=== PATIENT | male | born 1945 | race Asian ===

== ENCOUNTER 2022-10-27 19:03 | Emergency (ER) | payer MEDICARE ==
[~2022-10-27] VITALS: Ht 170.2 cm; Wt 59.1 kg
[2022-10-27 19:26] LABS: BASOPHILS # (AUTO) 0.1 X10'3 (0-0.2); BASOPHILS % (AUTO) 0.5 % (0-1); EOSINOPHILS # (AUTO) 0.2 X10'3 (0-0.9); EOSINOPHILS % (AUTO) 1.5 % (0-6); HEMATOCRIT 45.9 % (42.0-52.0); HEMOGLOBIN 15.6 g/dl (14.0-17.9); LYMPHOCYTES # (AUTO) 2.3 X10'3 (1.1-4.8); LYMPHOCYTES % (AUTO) 18.9 % (21-51); MEAN CORPUSCULAR HGB CONC 34.1 g/dL (33.0-36.5); MEAN CORPUSCULAR VOLUME 87.9 FL (78-98); MEAN PLATELET VOLUME 7.8 FL (7.4-10.4); MONOCYTES # (AUTO) 0.7 X10'3 (0-0.9); MONOCYTES % (AUTO) 5.7 % (2-12); NEUTROPHILS # (AUTO) 8.7 X10'3 (1.8-7.7); NEUTROPHILS % (AUTO) 73.4 % (42-75); PLATELET COUNT 268 X10'3 (140-440); RED BLOOD COUNT 5.22 X10'6 (4.70-6.10); RED CELL DISTRIBUTION WIDTH 16.1 % (11.5-14.5); WHITE BLOOD COUNT 11.9 X10'3 (4.5-11.0)
[2022-10-27 19:42] LABS: ALANINE AMINOTRANSFERASE 12 U/L (12-78); ALBUMIN 3.6 G/DL (3.4-5.0); ALKALINE PHOSPHATASE 96 IU/L (46-116); ANION GAP 10 (8-16); ASPARTATE AMINO TRANSFERASE 11 U/L (10-37); BILIRUBIN,TOTAL 1.1 MG/DL (0.1-1.0); BLOOD UREA NITROGEN 14 MG/DL (7-18); BUN/CREATININE RATIO 10.4 (10.0-20.0); CALCIUM 8.4 MG/DL (8.5-10.1); CHLORIDE 104 MMOL/L (99-107); CREATININE 1.35 MG/DL (0.60-1.10); GLUCOSE 210 MG/DL (70-104); POTASSIUM 3.9 MMOL/L (3.5-5.1); SODIUM 140 MMOL/L (135-145); TOTAL CARBON DIOXIDE 26.4 MMOL/L (24-32); TOTAL PROTEIN 7.1 G/DL (6.4-8.2); eGFR 51 ML/MIN
[2022-10-27 23:12] LABS: CLARITY,URINE CLOUDY (Clear); COLOR,URINE YELLOW (Yellow); GLUCOSE, URINE 100 mg/dl (Neg); KETONES,URINE 40 mg/dl (Neg); LEUKOCYTE ESTERASE ,URINE SMALL (Neg); NITRITES, URINE NEGATIVE (Neg); OCCULT BLOOD,URINE NEGATIVE (Neg); PROTEIN,URINE 100 mg/dl (Neg)
[2022-10-27 23:17] LABS: UA COLLECTION TYPE CLN CATCH MIDSTREAM
[2022-10-27 23:18] LABS: MUCUS STRANDS MANY /LPF (Neg); SQUAMOUS EPITHELIAL CELL,UR MODERATE /LPF (FEW); WBC,URINE 30-50 /HPF (0-4)
[2022-10-27 23:19] LABS: BACTERIA,URINE FEW /HPF (Neg); RBC,URINE 0-2 /HPF (0-2); TRANSITIONAL EPI CELLS,URINE FEW /HPF
[2022-10-27] MEDS ORDERED: amox tr/potassium clavulanate 875/125mg TAB PO ONE (23:20)
[2022-10-27] MEDS ORDERED: AMOX-117 PO (23:22)
[2022-10-27 23:50] VITALS: BP 144/87
== END 2022-10-28 00:07 | disposition home or self-care (01) ==
LOC: ER 19:04
DX: S00.83XA Contusion of other part of head, initial encounter (principal); E11.9 Type 2 diabetes mellitus without complications; F32.A Depression, unspecified; W19.XXXA Unspecified fall, initial encounter; Y93.89 Activity, other specified; Y92.89 Other specified places as the place of occurrence of the external cause; Y99.8 Other external cause status
CPT/HCPCS: 36415; 70450; 71045; 80053; 81001; 83880; 84484; 85025; 87088; 93005; 99285

== ENCOUNTER 2023-10-11 19:19 | Inpatient (IN) | payer MEDICARE ==
[~2023-10-11] VITALS: Ht 167.6 cm; Wt 66.5 kg
[2023-10-11] MEDS: normal saline 1000ML IV soln IVB ONE (23:35)
[2023-10-11 23:41] LABS: BASOPHILS % (AUTO) 0.3 % (0-1); EOSINOPHILS % (AUTO) 0.1 % (0-6); HEMATOCRIT 46.3 % (42.0-52.0); HEMOGLOBIN 15.9 g/dl (14.0-17.9); LYMPHOCYTES # (AUTO) 0.8 X10'3 (1.1-4.8); LYMPHOCYTES % (AUTO) 6.3 % (21-51); MEAN CORPUSCULAR HEMOGLOBIN 31.5 PG (27.0-31.0); MEAN CORPUSCULAR HGB CONC 34.4 g/dL (33.0-36.5); MEAN CORPUSCULAR VOLUME 91.7 FL (78-98); MEAN PLATELET VOLUME 9.6 FL (7.4-10.4); MONOCYTES # (AUTO) 0.6 X10'3 (0-0.9); NEUTROPHILS # (AUTO) 11.2 X10'3 (1.8-7.7); NEUTROPHILS % (AUTO) 88.3 % (42-75); PLATELET COUNT 119 X10'3 (140-440); RED BLOOD COUNT 5.05 X10'6 (4.70-6.10); RED CELL DISTRIBUTION WIDTH 14.5 % (11.5-14.5); WHITE BLOOD COUNT 12.7 X10'3 (4.5-11.0)
[2023-10-12] VITALS (21 sets, daily range): BP systolic 101–137; BP diastolic 62–93; PULSE 66–78; RESP 14–21; TEMP 97.3–98; O2SAT 69–100
[2023-10-12 00:05] LABS: ALBUMIN 3.7 G/DL (3.4-5.0); ANION GAP 11 (8-16); BLOOD UREA NITROGEN 14 MG/DL (7-18); BUN/CREATININE RATIO 11.7 (10.0-20.0); CALCIUM 8.5 MG/DL (8.5-10.1); CHLORIDE 104 MMOL/L (99-107); GLUCOSE 170 MG/DL (70-104); POTASSIUM 4.1 MMOL/L (3.5-5.1); SODIUM 140 MMOL/L (135-145); TOTAL CARBON DIOXIDE 25.5 MMOL/L (24-32); eCRCL 42 ML/MIN; eGFR 59 ML/MIN
[2023-10-12] MEDS: MESSAGE TO NURSING IV ONE ×4 (00:48→23:45)
[2023-10-12] MEDS: aspirin 325mg tablet, delayed-release (Ecotrin) PO ONE (00:55)
[2023-10-12] MEDS: heparin 10,000 units/1 ML INJ IV ONE (01:15)
[2023-10-12] MEDS: heparin 25,000 UNIT/250ml bag 250 ML IV PRN (01:17)
[2023-10-12] MEDS: normal saline 1000ml 1,000 ML IV ONE (01:26)
[2023-10-12] MEDS: nitroGLYCERIN 1gm ointment UD TP ONE (01:35)
[2023-10-12 01:36] LABS: BILIRUBIN,URINE NEGATIVE (Neg); CLARITY,URINE SLIGHTLY CLOUDY (Clear); COLOR,URINE YELLOW (Yellow); GLUCOSE, URINE 100 mg/dl (Neg); KETONES,URINE NEGATIVE (Neg); LEUKOCYTE ESTERASE ,URINE SMALL (Neg); NITRITES, URINE NEGATIVE (Neg); OCCULT BLOOD,URINE NEGATIVE (Neg); PROTEIN,URINE NEGATIVE (Neg); UROBILINOGEN,URINE 0.2 E.U/dL (0.2-1.0)
[2023-10-12 01:55] LABS: SQUAMOUS EPITHELIAL CELL,UR MODERATE /LPF (FEW); UA COLLECTION TYPE CLN CATCH MIDSTREAM
[2023-10-12 01:56] LABS: MUCUS STRANDS MODERATE /LPF (Neg)
[2023-10-12 01:56] LABS: PRO BRAIN NATRIURETIC PEPTIDE 373 PG/ML (0-450)
[2023-10-12 01:57] LABS: BACTERIA,URINE 2+ /HPF (Neg); RBC,URINE 0-2 /HPF (0-2); WBC,URINE 0-4 /HPF (0-4)
[2023-10-12 02:15] LABS: APTT 26 SECONDS (22-32); PROTHROMBIN TIME 10.9 SECONDS (9.0-12.0)
[2023-10-12] MEDS: CefTRIAXone 2gm/D5W 50ml BAG 50 ML IV ONE (02:50)
[2023-10-12] MEDS: polyvinyl alcohol ophthalmic drops 15ml bottle EACHEYE ONE (02:57)
[2023-10-12] MEDS ORDERED: mag hydrox/Alum hydrox/simeth 30ml oral suspension PO PRN (03:05)
[2023-10-12] MEDS ORDERED: magnesium 2GM in 50ml NS 50 ML IV PRN (03:05)
[2023-10-12] MEDS ORDERED: magnesium hydroxide 30ml (MOM) UD suspension PO PRN (03:05)
[2023-10-12] MEDS ORDERED: magnesium 4gm in 100ml NS 100 ML IV PRN (03:05)
[2023-10-12] MEDS ORDERED: potassium Cl 40MEQ/1/2NS 520ml 520 ML IV PRN (03:05)
[2023-10-12] MEDS ORDERED: morphine 2 MG/ML inj. syringe IV PRN (03:05)
[2023-10-12] MEDS ORDERED: ondansetron/PF 4mg/2ml inj IV PRN (03:05)
[2023-10-12] MEDS ORDERED: magnesium Cl slow-release 64mg tablet PO PRN (03:05)
[2023-10-12] MEDS ORDERED: potassium Cl 20 mEq SR tablet PO PRN ×2 (03:05)
[2023-10-12] MEDS ORDERED: acetaminophen 325mg tablet PO PRN (03:05)
[2023-10-12 03:50] LABS: HEMOGLOBIN A1C 7.9 % (4.5-6.2)
[2023-10-12 03:56] LABS: MAGNESIUM 1.9 MG/DL (1.5-2.4)
[2023-10-12] MEDS ORDERED: DEXTROSE 15 GM of carb/4 tabs (each vial/BOTTLE has 4 tablets) PO PRN ×2 (04:50)
[2023-10-12] MEDS ORDERED: dextrose 50%-water 50ml dispensing syringe IV PRN ×2 (04:50)
[2023-10-12] MEDS ORDERED: glucagon, human recombinant 1mg kit SUBCUT PRN (04:50)
[2023-10-12] MEDS: insulin Lispro (HumaLOG) vial - multi-dose SQ SCH (07:38)
[2023-10-12] MEDS: aspirin 81mg tab.chew PO SCH (07:44)
[2023-10-12] MEDS: docusate sod 100mg capsule PO SCH (07:44)
[2023-10-12] MEDS: pantoprazole 40 MG vial IV SCH (07:44)
[2023-10-12] MEDS: K and/or MAG REPLACEMENT MC SCH (08:00)
[2023-10-12] MEDS ORDERED: heparin 25,000 UNIT/250ml bag 250 ML IV PRN ×2 (09:25→14:45)
[2023-10-12] MEDS ORDERED: NO HOME MEDS (13:27)
[2023-10-12] MEDS: atorvastatin 20mg tablet PO SCH (14:00)
[2023-10-12] MEDS ORDERED: verapamil 2.5 mg/ml inj IV ONE (16:25)
[2023-10-12] MEDS ORDERED: iohexol 350MG/ML 100ml bottle IV ONE (16:25)
[2023-10-12] MEDS ORDERED: iohexol 350 MG/ML 50ML vial IV ONE (16:25)
[2023-10-12] MEDS ORDERED: heparin 1,000unit/ml 10ml vial 10 ML ONE (16:25)
[2023-10-12] MEDS ORDERED: fentaNYL/PF 50MCG/1 ML 2ML syringe ONE ×2 (16:25→17:39)
[2023-10-12] MEDS ORDERED: LIDOcaine 1% (10mg/ml) 2ml vial ONE (16:25)
[2023-10-12] MEDS ORDERED: midazolam 1 mg/ML 2ml injection ONE ×2 (16:25→17:39)
[2023-10-12] MEDS ORDERED: nitroGLYCERIN 500mcg/5mL D5W 5 ML IV ONE (16:26)
[2023-10-12] MEDS ORDERED: LIDOcaine 1% 30ml preserv. free vial ONE (17:57)
[2023-10-12] MEDS: normal saline 1000ml 1,000 ML IV SCH ×2 (21:30→23:21)
[2023-10-12] MEDS: insulin glargine (Lantus) pen - multi-dose SQ SCH (23:07)
[2023-10-12] MEDS: CefTRIAXone/D5W-Rocephin 1gm 50 ML IV SCH (23:19)
[2023-10-13] VITALS (10 sets, daily range): BP systolic 98–150; BP diastolic 68–88; PULSE 63–79; RESP 16–20; TEMP 97.3–98.4; O2SAT 94–99
[2023-10-13 01:58] LABS: BASOPHILS % (AUTO) 0.5 % (0-1); EOSINOPHILS # (AUTO) 0.1 X10'3 (0-0.9); EOSINOPHILS % (AUTO) 0.8 % (0-6); HEMATOCRIT 35.7 % (42.0-52.0); HEMOGLOBIN 12.1 g/dl (14.0-17.9); LYMPHOCYTES # (AUTO) 1.1 X10'3 (1.1-4.8); LYMPHOCYTES % (AUTO) 16.2 % (21-51); MEAN CORPUSCULAR HEMOGLOBIN 31.6 PG (27.0-31.0); MEAN CORPUSCULAR HGB CONC 33.9 g/dL (33.0-36.5); MEAN CORPUSCULAR VOLUME 93.1 FL (78-98); MEAN PLATELET VOLUME 10.2 FL (7.4-10.4); MONOCYTES # (AUTO) 0.4 X10'3 (0-0.9); MONOCYTES % (AUTO) 6.3 % (2-12); NEUTROPHILS # (AUTO) 5.3 X10'3 (1.8-7.7); NEUTROPHILS % (AUTO) 76.2 % (42-75); PLATELET COUNT 98 X10'3 (140-440); RED BLOOD COUNT 3.84 X10'6 (4.70-6.10); RED CELL DISTRIBUTION WIDTH 14.5 % (11.5-14.5); WHITE BLOOD COUNT 6.9 X10'3 (4.5-11.0)
[2023-10-13 02:10] LABS: ALANINE AMINOTRANSFERASE 25 U/L (12-78); ALBUMIN 2.6 G/DL (3.4-5.0); ALBUMIN/GLOBULIN RATIO 0.9 (1.1-1.5); ALKALINE PHOSPHATASE 43 IU/L (46-116); ANION GAP 10 (8-16); ASPARTATE AMINO TRANSFERASE 30 U/L (10-37); BILIRUBIN,TOTAL 0.5 MG/DL (0.1-1.0); BLOOD UREA NITROGEN 10 MG/DL (7-18); BUN/CREATININE RATIO 9.8 (10.0-20.0); CHLORIDE 111 MMOL/L (99-107); CHOL/HDL RATIO 3.9 (0.00-4.99); CHOLESTEROL 178 MG/DL (0-200); CREATININE 1.02 MG/DL (0.60-1.10); GLUCOSE 106 MG/DL (70-104); HDL CHOLESTEROL 46 MG/DL (35-60); LDL CHOLESTEROL 119 MG/DL (50-100); MAGNESIUM 1.6 MG/DL (1.5-2.4); POTASSIUM 3.5 MMOL/L (3.5-5.1); SODIUM 144 MMOL/L (135-145); TOTAL CARBON DIOXIDE 23.3 MMOL/L (24-32); TOTAL PROTEIN 5.4 G/DL (6.4-8.2); TRIGLYCERIDES 88 MG/DL (20-135); eCRCL 49 ML/MIN; eGFR 71 ML/MIN
[2023-10-13 06:46] LABS: ISTAT HGB ART 11.2 g/dl (14.0-17.9); ISTAT HGB MIX 11.2 g/dl (14.0-17.9); ISTAT Hct ART 33 %PCV (42-52); ISTAT Hct MIX 33 %PCV (42-52); ISTAT O2 SATURATION ARTERIAL 99 % (95-98); ISTAT O2 SATURATION MIX VENOUS 60 % (60-80); ISTAT SOURCE BLNK
[2023-10-13] MEDS ORDERED: heparin 25,000 UNIT/250ml bag 250 ML IV PRN (09:59)
[2023-10-13] MEDS: heparin 10,000 units/1 ML INJ IV PRN (10:09)
[2023-10-13] MEDS: MESSAGE TO NURSING IV ONE ×2 (10:10→18:50)
[2023-10-13] MEDS: MESSAGE TO PHARMACY IJ ONE (12:05)
[2023-10-13] MEDS: MESSAGE TO NURSING PO ONE ×3 (12:05)
[2023-10-13] MEDS ORDERED: ondansetron 4mg rapidly disintigrating tab PO PRN (12:05)
[2023-10-13 15:11] LABS: ABG BASE EXCESS -2.8 mmol/L (-2.0-2.0); ABG HCO3 19.9 mmol/L (22.0-26.0); ABG OXYGEN SATURATION 96.3 % (94-97); ABG PCO2 (T) 29.2 mmHg (35.0-48.0); ABG PH (T) 7.452 (7.340-7.440); ABG PO2 (T) 81.4 mmHg (75.0-100.0); ALLEN'S TEST POSITIVE; FCOHb 0.6 % (0.0-3.9); FHHb 3.7 % (0.0-5.0); FMetHb 0.3 % (0.0-1.5); FO2Hb 95.4 % (94-97); MODE ROOM AIR; TOTAL HEMOGLOBIN 13.7 G/dl (14.0-17.9)
[2023-10-13 18:27] LABS: APTT 60 SECONDS (22-32); PROTHROMBIN TIME 10.8 SECONDS (9.0-12.0)
[2023-10-13] MEDS ORDERED: dextrose 50%-water 50ml dispensing syringe IV PRN (19:50)
[2023-10-13] MEDS: Insulin Reg/NS 100units/100mL 100 ML IV SCH (19:50)
[2023-10-13] MEDS ORDERED: insulin glargine (Lantus) pen - multi-dose SQ PRN (19:50)
[2023-10-13] MEDS: mupirocin 2% nasal ointment 1gm UD NS SCH (20:00)
[2023-10-13] MEDS: atorvastatin 20mg tablet PO SCH (20:59)
[2023-10-14] VITALS (32 sets, daily range): BP systolic 100–169; BP diastolic 52–93; PULSE 73–97; RESP 10–38; TEMP 94.2–98.7; O2SAT 60–100
[2023-10-14 01:28] LABS: PROTHROMBIN TIME 10.8 SECONDS (9.0-12.0)
[2023-10-14] MEDS: MESSAGE TO NURSING IV ONE (01:50)
[2023-10-14 04:38] LABS: ALANINE AMINOTRANSFERASE 34 U/L (12-78); ALBUMIN 3.3 G/DL (3.4-5.0); ALBUMIN/GLOBULIN RATIO 0.9 (1.1-1.5); ALKALINE PHOSPHATASE 83 IU/L (46-116); ANION GAP 7 (8-16); ASPARTATE AMINO TRANSFERASE 39 U/L (10-37); BILIRUBIN,TOTAL 0.4 MG/DL (0.1-1.0); BLOOD UREA NITROGEN 10 MG/DL (7-18); BUN/CREATININE RATIO 9.3 (10.0-20.0); CALCIUM 8.4 MG/DL (8.5-10.1); CHLORIDE 107 MMOL/L (99-107); CREATININE 1.08 MG/DL (0.60-1.10); GLUCOSE 137 MG/DL (70-104); MAGNESIUM 1.8 MG/DL (1.5-2.4); POTASSIUM 3.9 MMOL/L (3.5-5.1); PRO BRAIN NATRIURETIC PEPTIDE 860 PG/ML (0-450); SODIUM 142 MMOL/L (135-145); TOTAL CARBON DIOXIDE 27.6 MMOL/L (24-32); TOTAL PROTEIN 6.8 G/DL (6.4-8.2); eCRCL 47 ML/MIN; eGFR 66 ML/MIN
[2023-10-14 04:57] LABS: BASOPHILS # (AUTO) 0.1 X10'3 (0-0.2); MONOCYTES # (AUTO) 0.5 X10'3 (0-0.9)
[2023-10-14 04:59] LABS: BASOPHILS % (AUTO) 0.8 % (0-1); EOSINOPHILS # (AUTO) 0.2 X10'3 (0-0.9); EOSINOPHILS % (AUTO) 2.6 % (0-6); HEMATOCRIT 40.2 % (42.0-52.0); HEMOGLOBIN 14.1 g/dl (14.0-17.9); LYMPHOCYTES # (AUTO) 1.7 X10'3 (1.1-4.8); LYMPHOCYTES % (AUTO) 26.8 % (21-51); MEAN CORPUSCULAR HEMOGLOBIN 32.3 PG (27.0-31.0); MEAN CORPUSCULAR HGB CONC 35.1 g/dL (33.0-36.5); MEAN PLATELET VOLUME 11.1 FL (7.4-10.4); MONOCYTES % (AUTO) 7.8 % (2-12); PLATELET COUNT 80 X10'3 (140-440); RED BLOOD COUNT 4.37 X10'6 (4.70-6.10); RED CELL DISTRIBUTION WIDTH 14.7 % (11.5-14.5); WHITE BLOOD COUNT 6.4 X10'3 (4.5-11.0)
[2023-10-14 05:18] LABS: LARGE PLATELETS FEW; PLATELET ESTIMATE DECREASED
[2023-10-14 05:19] LABS: ANISOCYTOSIS 1+; BURR CELLS FEW; TEAR DROP CELLS FEW
[2023-10-14 05:20] LABS: ACANTHOCYTES FEW
[2023-10-14] MEDS: cefazolin 2gm/D5W 100mL 100 ML IV ONE (05:30)
[2023-10-14] MEDS ORDERED: vancomycin 1,000mg inj ONE (06:48)
[2023-10-14] MEDS ORDERED: propofol inj 20 ML IV ONE (07:34)
[2023-10-14] MEDS ORDERED: MIDAZolam 1 MG/ML 5ML VIAL ONE (07:34)
[2023-10-14] MEDS ORDERED: SUfentanil 50mcg/ml 1ml amp IV ONE (07:34)
[2023-10-14] MEDS ORDERED: rocuronium 10mg/ml inj IV ONE ×2 (07:35)
[2023-10-14] MEDS: LORazepam 2 mg/ml vial IV ONE (07:44)
[2023-10-14] MEDS: famotidine 20mg tablet PO ONE (07:44)
[2023-10-14] MEDS ORDERED: sevoflurane 250ml liquid IH ONE (07:56)
[2023-10-14 08:49] LABS: ABG BASE EXCESS -0.8 mmol/L (-2.0-2.0); ABG HCO3 21.7 mmol/L (22.0-26.0); ABG OXYGEN SATURATION 98.9 % (94-97); ABG PCO2 29.4 mmHg (35.0-48.0); ABG PH 7.485 (7.340-7.440); ABG PO2 310.4 mmHg (75.0-100.0); CL (ABG) 107 mmol/L (99-107); FCOHb 0.3 % (0.0-3.9); FHHb 1.1 % (0.0-5.0); FMetHb 0.3 % (0.0-1.5); FO2Hb 98.3 % (94-97); GLUCOSE (ABG) 157 mg/dl (70-104); IONIZED CA (ABG) 1.06 mmol/L (1.10-1.30); K (ABG) 3.6 mmol/L (3.5-5.1); TOTAL HEMOGLOBIN 12.4 G/dl (14.0-17.9)
[2023-10-14] MEDS: BUPIVACAINE liposomal/PF 13.3 MG/ML vial IM ONE (09:59)
[2023-10-14] MEDS ORDERED: potassium Cl 2 mEq/ml inj IV ONE (10:00)
[2023-10-14] MEDS: MESSAGE TO NURSING PO ONE (10:00)
[2023-10-14] MEDS: BUPIVAcaine/PF 2.5mg/ml (0.25%) 10ml vial ONE (10:00)
[2023-10-14] MEDS: ceFAZolin 1000mg inj ONE (10:01)
[2023-10-14] MEDS: epiNEPHrine 1 mg/ml inj ONE (10:02)
[2023-10-14] MEDS ORDERED: albumin (Human) 5% 250ml 250 ML IV ONE ×3 (10:07)
[2023-10-14 10:47] LABS: ABG BASE EXCESS -5.3 mmol/L (-2.0-2.0); ABG HCO3 19.8 mmol/L (22.0-26.0); ABG OXYGEN SATURATION 78.6 % (94-97); ABG PCO2 36.9 mmHg (35.0-48.0); ABG PH 7.347 (7.340-7.440); CL (ABG) 115 mmol/L (99-107); FCOHb 0.3 % (0.0-3.9); FHHb 21.3 % (0.0-5.0); FMetHb 0.3 % (0.0-1.5); FO2Hb 78.1 % (94-97); GLUCOSE (ABG) 113 mg/dl (70-104); IONIZED CA (ABG) 0.93 mmol/L (1.10-1.30); TOTAL HEMOGLOBIN 8.9 G/dl (14.0-17.9)
[2023-10-14] MEDS ORDERED: sodium bicarbonate (8.4%) inj. 1 MEQ/ML ML ONE (11:18)
[2023-10-14 11:32] LABS: ACT @ 1.70 U 336 SEC (193-297); ACT @ 2.84 U 453 SEC (260-420); BASELINE ACT 148 SEC (101-148); PATIENT WEIGHT 77.0k KG
[2023-10-14 11:39] LABS: ABG BASE EXCESS -1.3 mmol/L (-2.0-2.0); ABG HCO3 22.5 mmol/L (22.0-26.0); ABG OXYGEN SATURATION 98.8 % (94-97); ABG PCO2 34.2 mmHg (35.0-48.0); ABG PH 7.436 (7.340-7.440); ABG PO2 257.6 mmHg (75.0-100.0); CL (ABG) 113 mmol/L (99-107); FCOHb 0.3 % (0.0-3.9); FHHb 1.2 % (0.0-5.0); FMetHb 0.3 % (0.0-1.5); FO2Hb 98.2 % (94-97); GLUCOSE (ABG) 122 mg/dl (70-104); K (ABG) 5.1 mmol/L (3.5-5.1); TOTAL HEMOGLOBIN 10.7 G/dl (14.0-17.9)
[2023-10-14 12:05] LABS: ABG BASE EXCESS VENOUS -4.2 mmol/L (-2.0 - 2.0); ABG OXYGEN SATURATION VENOUS 80.9 % (75 - 99 %); ABG PH (VENOUS) 7.349 (7.310-7.450); CL (ABG) 112 mmol/L (99-107); FCOHb VENOUS 0.3 %; FMetHb VENOUS 0.3 % (0.0 - 0.5); FO2Hb VENOUS 80.4 %; GLUCOSE (ABG) 120 mg/dl (70-104); IONIZED CA (ABG) 1.09 mmol/L (1.10-1.30); K (ABG) 4.3 mmol/L (3.5-5.1); TOTAL HEMOGLOBIN 10.9 G/dl (14.0-17.9)
[2023-10-14 12:23] LABS: ABG BASE EXCESS VENOUS -1.7 mmol/L (-2.0 - 2.0); ABG OXYGEN SATURATION VENOUS 89.9 % (75 - 99 %); ABG PCO2 VENOUS 38.2 mmHg (41.0-54.0); ABG PH (VENOUS) 7.397 (7.310-7.450); ABG PO2 VENOUS 54.4 mmHg (25.0-35.0); CL (ABG) 108 mmol/L (99-107); FCOHb VENOUS 0.3 %; FMetHb VENOUS 0.3 % (0.0 - 0.5); FO2Hb VENOUS 89.4 %; GLUCOSE (ABG) 124 mg/dl (70-104); IONIZED CA (ABG) 0.94 mmol/L (1.10-1.30); K (ABG) 5.5 mmol/L (3.5-5.1); TOTAL HEMOGLOBIN 8.5 G/dl (14.0-17.9)
[2023-10-14 12:32] LABS: ABG BASE EXCESS -3.6 mmol/L (-2.0-2.0); ABG HCO3 22.6 mmol/L (22.0-26.0); ABG OXYGEN SATURATION 98.9 % (94-97); ABG PCO2 46.3 mmHg (35.0-48.0); ABG PH 7.307 (7.340-7.440); ABG PO2 495.1 mmHg (75.0-100.0); CL (ABG) 109 mmol/L (99-107); FCOHb 0.2 % (0.0-3.9); FHHb 1.1 % (0.0-5.0); FMetHb 0.3 % (0.0-1.5); FO2Hb 98.4 % (94-97); GLUCOSE (ABG) 145 mg/dl (70-104); IONIZED CA (ABG) 0.94 mmol/L (1.10-1.30); K (ABG) 5.3 mmol/L (3.5-5.1); TOTAL HEMOGLOBIN 10.2 G/dl (14.0-17.9)
[2023-10-14 13:00] LABS: ABG BASE EXCESS -0.9 mmol/L (-2.0-2.0); ABG HCO3 23.5 mmol/L (22.0-26.0); ABG OXYGEN SATURATION 98.9 % (94-97); ABG PCO2 37.7 mmHg (35.0-48.0); ABG PH 7.412 (7.340-7.440); ABG PO2 508.7 mmHg (75.0-100.0); CL (ABG) 109 mmol/L (99-107); FCOHb 0.2 % (0.0-3.9); FHHb 1.1 % (0.0-5.0); FMetHb 0.3 % (0.0-1.5); FO2Hb 98.4 % (94-97); GLUCOSE (ABG) 134 mg/dl (70-104); IONIZED CA (ABG) 0.99 mmol/L (1.10-1.30); K (ABG) 4.4 mmol/L (3.5-5.1); TOTAL HEMOGLOBIN 10.8 G/dl (14.0-17.9)
[2023-10-14 13:28] LABS: ABG HCO3 25.4 mmol/L (22.0-26.0); ABG OXYGEN SATURATION 98.5 % (94-97); ABG PCO2 35.3 mmHg (35.0-48.0); ABG PH 7.475 (7.340-7.440); ABG PO2 387.4 mmHg (75.0-100.0); CL (ABG) 109 mmol/L (99-107); FCOHb 0.1 % (0.0-3.9); FHHb 1.5 % (0.0-5.0); FMetHb 0.3 % (0.0-1.5); FO2Hb 98.1 % (94-97); GLUCOSE (ABG) 162 mg/dl (70-104); IONIZED CA (ABG) 0.97 mmol/L (1.10-1.30); K (ABG) 4.8 mmol/L (3.5-5.1); TOTAL HEMOGLOBIN 10.3 G/dl (14.0-17.9)
[2023-10-14 14:25] LABS: ACTIVATED CLOTTING TIME 143 SEC (101-148)
[2023-10-14 14:25] LABS: ABG BASE EXCESS -0.7 mmol/L (-2.0-2.0); ABG HCO3 23.1 mmol/L (22.0-26.0); ABG PCO2 34.9 mmHg (35.0-48.0); ABG PH 7.439 (7.340-7.440); CL (ABG) 109 mmol/L (99-107); FCOHb 0.3 % (0.0-3.9); FHHb 12.9 % (0.0-5.0); FMetHb 0.3 % (0.0-1.5); FO2Hb 86.5 % (94-97); GLUCOSE (ABG) 125 mg/dl (70-104); IONIZED CA (ABG) 1.17 mmol/L (1.10-1.30); K (ABG) 3.9 mmol/L (3.5-5.1); TOTAL HEMOGLOBIN 10.9 G/dl (14.0-17.9)
[2023-10-14] MEDS ORDERED: Neutra Phos packet PO PRN (15:30)
[2023-10-14] MEDS ORDERED: potassium CL 10mEq/100ml bag 100 ML IV PRN (15:30)
[2023-10-14] MEDS ORDERED: metoclopramide 5 mg/ml inj IV PRN (15:30)
[2023-10-14] MEDS: sodium chloride 0.45% 1,000 ML IV SCH (15:30)
[2023-10-14] MEDS ORDERED: sodium phosphate inj. 30 MMOL in dextrose 5%-water 250 ML IV PRN (15:30)
[2023-10-14] MEDS ORDERED: dextrose 50%-water 50ml dispensing syringe IV PRN (15:30)
[2023-10-14] MEDS ORDERED: niCARDipine-NS 40mg/200ml IVPB 200 ML IV PRN (15:30)
[2023-10-14] MEDS ORDERED: insulin glargine (Lantus) pen - multi-dose SQ PRN (15:30)
[2023-10-14] MEDS ORDERED: normal saline 250ml IV soln 250 ML IV PRN (15:30)
[2023-10-14] MEDS ORDERED: Insulin Reg/NS 100units/100mL 100 ML IV SCH (15:30)
[2023-10-14] MEDS ORDERED: ondansetron/PF 4mg/2ml inj IV PRN (15:30)
[2023-10-14] MEDS ORDERED: mineral oil 133ml enema RC PRN (15:30)
[2023-10-14 15:39] LABS: ABG BASE EXCESS -2.5 mmol/L (-2.0-2.0); ABG HCO3 21.6 mmol/L (22.0-26.0); ABG OXYGEN SATURATION 95.7 % (94-97); ABG PCO2 (T) 32.6 mmHg (35.0-48.0); ABG PH (T) 7.432 (7.340-7.440); ABG PO2 (T) 73.9 mmHg (75.0-100.0); FCOHb 0.6 % (0.0-3.9); FHHb 4.3 % (0.0-5.0); FMetHb 0.3 % (0.0-1.5); FO2Hb 94.8 % (94-97); MODE SIMV VC; PATIENT TEMPERATURE 35.5; PEEP 5 cm H2O; RESPIRATORY RATE 12 b/min; TIDAL VOLUME 400 mL; TOTAL HEMOGLOBIN 12.3 G/dl (14.0-17.9)
[2023-10-14] MEDS: ceFAZolin/D5W- 1GM premix 50 ML IV SCH (16:00)
[2023-10-14 16:24] LABS: ALANINE AMINOTRANSFERASE 25 U/L (12-78); ALBUMIN 2.6 G/DL (3.4-5.0); ALBUMIN/GLOBULIN RATIO 1.4 (1.1-1.5); ALKALINE PHOSPHATASE 34 IU/L (46-116); ANION GAP 12 (8-16); ASPARTATE AMINO TRANSFERASE 58 U/L (10-37); BILIRUBIN,TOTAL 1.2 MG/DL (0.1-1.0); BLOOD UREA NITROGEN 7 MG/DL (7-18); CALCIUM 7.7 MG/DL (8.5-10.1); CHLORIDE 115 MMOL/L (99-107); CREATININE 0.88 MG/DL (0.60-1.10); GLUCOSE 97 MG/DL (70-104); MAGNESIUM 2.4 MG/DL (1.5-2.4); PHOSPHORUS 1.7 MG/DL (2.3-4.5); SODIUM 150 MMOL/L (135-145); TOTAL CARBON DIOXIDE 23.5 MMOL/L (24-32); TOTAL PROTEIN 4.4 G/DL (6.4-8.2); eCRCL 66 ML/MIN; eGFR 84 ML/MIN
[2023-10-14 16:26] LABS: POTASSIUM 3.3 MMOL/L (3.5-5.1)
[2023-10-14 16:29] LABS: HEMATOCRIT 34.2 % (42.0-52.0); MEAN CORPUSCULAR HEMOGLOBIN 31.8 PG (27.0-31.0); MEAN CORPUSCULAR HGB CONC 35.1 g/dL (33.0-36.5); MEAN CORPUSCULAR VOLUME 90.7 FL (78-98); MEAN PLATELET VOLUME 8.8 FL (7.4-10.4); RED BLOOD COUNT 3.77 X10'6 (4.70-6.10); RED CELL DISTRIBUTION WIDTH 14.1 % (11.5-14.5)
[2023-10-14] MEDS ORDERED: calcium gluconate inj. 1 GM in normal saline 100ml IV soln 40 ML IV ONE (16:35)
[2023-10-14] MEDS ORDERED: calcium gluconate inj. 2 GM in normal saline 100ml IV soln 100 ML IV PRN (16:35)
[2023-10-14] MEDS ORDERED: DOPamine 400mg/D5W 250ml 250 ML IV PRN (16:40)
[2023-10-14] MEDS: albumin (Human) 5% 250ml 250 ML IV PRN (16:48)
[2023-10-14] MEDS: albumin (Human) 5% 250ml 250 ML IV ONE ×3 (16:48→16:58)
[2023-10-14] MEDS: CALCIUM GLUC 1gm/50ml NACL,iso 50 ML IV ONE ×2 (16:49→16:50)
[2023-10-14] MEDS: DOPamine 400mg/D5W 250ml 250 ML IV ONE (16:50)
[2023-10-14] MEDS: sodium bicarbonate (8.4%) 1 mEq/ml syringe ONE ×2 (16:51→18:41)
[2023-10-14] MEDS: nitroGLYCERIN-Tridil 50MG/D5W 250 ML IV PRN (16:53)
[2023-10-14 17:04] LABS: PLATELET COUNT 29 X10'3 (140-440)
[2023-10-14] MEDS ORDERED: ipratropium/albuterol 3ml nebule NEB ONE (17:05)
[2023-10-14 17:31] LABS: ABG BASE EXCESS -1.1 mmol/L (-2.0-2.0); ABG HCO3 20.7 mmol/L (22.0-26.0); ABG OXYGEN SATURATION 98.9 % (94-97); ABG PH (T) 7.566 (7.340-7.440); ABG PO2 (T) 253.9 mmHg (75.0-100.0); FCOHb 0.1 % (0.0-3.9); FHHb 1.1 % (0.0-5.0); FMetHb 0.3 % (0.0-1.5); FO2Hb 98.5 % (94-97); MODE SIMV VC; PATIENT TEMPERATURE 34.9; PEEP 8 cm H2O; RESPIRATORY RATE 16 b/min; TIDAL VOLUME 500 mL; TOTAL HEMOGLOBIN 9.2 G/dl (14.0-17.9)
[2023-10-14] MEDS ORDERED: ipratropium/albuterol 3ml nebule NEB SCH (17:35)
[2023-10-14] MEDS: ipratropium/albuterol 3ml nebule NEB ONE (17:43)
[2023-10-14] MEDS: sodium phosphate inj. 15 MMOL in dextrose 5%-water 250 ML IV PRN (18:03)
[2023-10-14] MEDS: potassium Cl 40MEQ/1/2NS 520ml 520 ML IV PRN (18:03)
[2023-10-14 18:04] LABS: FIBRINOGEN 153 MG/DL (177-424); INR 1.3 INR; PROTHROMBIN TIME 13.2 SECONDS (9.0-12.0)
[2023-10-14 18:09] LABS: APTT 39 SECONDS (22-32)
[2023-10-14 18:14] LABS: TOTAL CELLS COUNTED 100
[2023-10-14 18:16] LABS: PLATELET ESTIMATE DECREASED
[2023-10-14 18:17] LABS: BURR CELLS FEW; ELLIPTOCYTES FEW; LARGE PLATELETS FEW
[2023-10-14] MEDS: sodium bicarbonate (8.4%) 1 mEq/ml syringe IV ONE (18:40)
[2023-10-14 19:30] LABS: OXYGEN SATURATION (MIXED VEN) 48.1 % (60-80); PO2 MIXED VENOUS (TEMP COR) 21.4 mmHg (35-46)
[2023-10-14] MEDS ORDERED: niCARDipine-NS 40mg/200ml IVPB 200 ML IV SCH (19:35)
[2023-10-14 19:39] LABS: ABG BASE EXCESS -0.3 mmol/L (-2.0-2.0); ABG HCO3 22.4 mmol/L (22.0-26.0); ABG OXYGEN SATURATION 98.5 % (94-97); ABG PCO2 (T) 28.9 mmHg (35.0-48.0); ABG PH (T) 7.506 (7.340-7.440); ABG PO2 (T) 151.2 mmHg (75.0-100.0); FCOHb 0.3 % (0.0-3.9); FHHb 1.5 % (0.0-5.0); FMetHb 0.3 % (0.0-1.5); FO2Hb 97.9 % (94-97); MODE simv 10/8; PATIENT TEMPERATURE 36.5; RESPIRATORY RATE 12 b/min; TIDAL VOLUME 500 mL; TOTAL HEMOGLOBIN 9.7 G/dl (14.0-17.9)
[2023-10-14 19:45] LABS: OXYGEN SATURATION (MIXED VEN) 50.2 % (60-80); PO2 MIXED VENOUS (TEMP COR) 22.7 mmHg (35-46)
[2023-10-14] MEDS: sennosides/docusate sodium tablet PO SCH (20:00)
[2023-10-14] MEDS: mupirocin 2% nasal ointment 1gm UD NS SCH (20:00)
[2023-10-14 20:19] LABS: BASOPHILS % (AUTO) 0.1 % (0-1); EOSINOPHILS % (AUTO) 0.1 % (0-6); HEMATOCRIT 25.9 % (42.0-52.0); HEMOGLOBIN 9.1 g/dl (14.0-17.9); LYMPHOCYTES # (AUTO) 0.3 X10'3 (1.1-4.8); LYMPHOCYTES % (AUTO) 4.9 % (21-51); MEAN CORPUSCULAR HEMOGLOBIN 31.3 PG (27.0-31.0); MEAN CORPUSCULAR HGB CONC 35.3 g/dL (33.0-36.5); MEAN CORPUSCULAR VOLUME 88.4 FL (78-98); MEAN PLATELET VOLUME 7.7 FL (7.4-10.4); MONOCYTES # (AUTO) 0.3 X10'3 (0-0.9); MONOCYTES % (AUTO) 5.2 % (2-12); NEUTROPHILS # (AUTO) 5.6 X10'3 (1.8-7.7); NEUTROPHILS % (AUTO) 89.7 % (42-75); PLATELET COUNT 89 X10'3 (140-440); RED BLOOD COUNT 2.92 X10'6 (4.70-6.10); RED CELL DISTRIBUTION WIDTH 14.9 % (11.5-14.5); WHITE BLOOD COUNT 6.2 X10'3 (4.5-11.0)
[2023-10-14 20:21] LABS: APTT 38 SECONDS (22-32); FIBRINOGEN 133 MG/DL (177-424); INR 1.3 INR; PROTHROMBIN TIME 13.3 SECONDS (9.0-12.0)
[2023-10-14 20:29] LABS: ALANINE AMINOTRANSFERASE 39 U/L (12-78); ALBUMIN 3.3 G/DL (3.4-5.0); ALBUMIN/GLOBULIN RATIO 2.1 (1.1-1.5); ALKALINE PHOSPHATASE 29 IU/L (46-116); ANION GAP 12 (8-16); ASPARTATE AMINO TRANSFERASE 96 U/L (10-37); BILIRUBIN,TOTAL 1.7 MG/DL (0.1-1.0); BLOOD UREA NITROGEN 8 MG/DL (7-18); BUN/CREATININE RATIO 6.7 (10.0-20.0); CALCIUM 8.1 MG/DL (8.5-10.1); CHLORIDE 114 MMOL/L (99-107); GLUCOSE 174 MG/DL (70-104); PHOSPHORUS 2.6 MG/DL (2.3-4.5); POTASSIUM 3.5 MMOL/L (3.5-5.1); SODIUM 150 MMOL/L (135-145); TOTAL PROTEIN 4.9 G/DL (6.4-8.2); eCRCL 45 ML/MIN; eGFR 59 ML/MIN
[2023-10-14] MEDS: atorvastatin 10mg tablet PO SCH (20:43)
[2023-10-14] MEDS: gabapentin 300mg capsule PO SCH (21:06)
[2023-10-14] MEDS: HYDROmorphone inj. 0.5 MG/0.5 ML DISP.SYRIN IV PRN (21:06)
[2023-10-14] MEDS: acetaminophen 1,000mg/100ml IV 100 ML IV SCH (21:07)
[2023-10-14] MEDS: vancomycin/NS 1 GM ADD-VANTAGE 250 ML IV SCH (21:14)
[2023-10-14] MEDS: ipratropium/albuterol 3ml nebule NEB SCH (23:21)
[2023-10-14 23:31] LABS: ABG BASE EXCESS -3.4 mmol/L (-2.0-2.0); ABG HCO3 20.8 mmol/L (22.0-26.0); ABG OXYGEN SATURATION 97.1 % (94-97); ABG PCO2 (T) 33.8 mmHg (35.0-48.0); ABG PH (T) 7.405 (7.340-7.440); ABG PO2 (T) 94.6 mmHg (75.0-100.0); FHHb 2.9 % (0.0-5.0); FMetHb 0.3 % (0.0-1.5); FO2Hb 96.8 % (94-97); MODE simv 10/10; PATIENT TEMPERATURE 36.7; RESPIRATORY RATE 10 b/min; TIDAL VOLUME 500 mL; TOTAL HEMOGLOBIN 10.6 G/dl (14.0-17.9)
[2023-10-15] VITALS (42 sets, daily range): BP systolic 104–137; BP diastolic 44–67; PULSE 83–101; RESP 12–18; TEMP 98.6; O2SAT 92–99
[2023-10-15] MEDS: traMADol 50MG tablet PO PRN (00:11)
[2023-10-15] MEDS: sodium bicarbonate (8.4%) 1 mEq/ml syringe IV ONE ×2 (01:36→13:00)
[2023-10-15 03:20] LABS: ABG BASE EXCESS -2.3 mmol/L (-2.0-2.0); ABG HCO3 21.5 mmol/L (22.0-26.0); ABG OXYGEN SATURATION 97.6 % (94-97); ABG PH (T) 7.431 (7.340-7.440); ABG PO2 (T) 106.8 mmHg (75.0-100.0); FCOHb 0.1 % (0.0-3.9); FHHb 2.4 % (0.0-5.0); FMetHb 0.3 % (0.0-1.5); FO2Hb 97.2 % (94-97); MODE simv 10/10; PATIENT TEMPERATURE 36.7; PEEP 10 cm H2O; RESPIRATORY RATE 10 b/min; TIDAL VOLUME 500 mL; TOTAL HEMOGLOBIN 9.6 G/dl (14.0-17.9)
[2023-10-15 03:54] LABS: INR 1.1 INR; PROTHROMBIN TIME 11.7 SECONDS (9.0-12.0)
[2023-10-15 03:59] LABS: ALANINE AMINOTRANSFERASE 35 U/L (12-78); ALBUMIN/GLOBULIN RATIO 1.5 (1.1-1.5); ALKALINE PHOSPHATASE 31 IU/L (46-116); ANION GAP 10 (8-16); ASPARTATE AMINO TRANSFERASE 90 U/L (10-37); BILIRUBIN,TOTAL 1.2 MG/DL (0.1-1.0); BLOOD UREA NITROGEN 9 MG/DL (7-18); BUN/CREATININE RATIO 7.6 (10.0-20.0); CALCIUM 7.6 MG/DL (8.5-10.1); CHLORIDE 114 MMOL/L (99-107); CREATININE 1.18 MG/DL (0.60-1.10); GLUCOSE 130 MG/DL (70-104); MAGNESIUM 1.9 MG/DL (1.5-2.4); PHOSPHORUS 3.6 MG/DL (2.3-4.5); POTASSIUM 3.6 MMOL/L (3.5-5.1); SODIUM 149 MMOL/L (135-145); TOTAL CARBON DIOXIDE 24.6 MMOL/L (24-32); eCRCL 46 ML/MIN; eGFR 60 ML/MIN
[2023-10-15 04:01] LABS: BASOPHILS % (AUTO) 0 % (0-1); EOSINOPHILS % (AUTO) 0 % (0-6); HEMATOCRIT 25.9 % (42.0-52.0); HEMOGLOBIN 9.1 g/dl (14.0-17.9); LYMPHOCYTES # (AUTO) 0.3 X10'3 (1.1-4.8); LYMPHOCYTES % (AUTO) 4.2 % (21-51); MEAN CORPUSCULAR HEMOGLOBIN 30.2 PG (27.0-31.0); MEAN CORPUSCULAR HGB CONC 34.9 g/dL (33.0-36.5); MEAN CORPUSCULAR VOLUME 86.5 FL (78-98); MEAN PLATELET VOLUME 8.6 FL (7.4-10.4); MONOCYTES # (AUTO) 0.5 X10'3 (0-0.9); NEUTROPHILS # (AUTO) 6.5 X10'3 (1.8-7.7); NEUTROPHILS % (AUTO) 88.8 % (42-75); PLATELET COUNT 125 X10'3 (140-440); RED CELL DISTRIBUTION WIDTH 16.3 % (11.5-14.5); WHITE BLOOD COUNT 7.3 X10'3 (4.5-11.0)
[2023-10-15] MEDS: magnesium 4gm in 100ml NS 100 ML IV PRN (05:09)
[2023-10-15] MEDS: potassium Cl 20mEq/100mL bag 100 ML IV PRN (05:09)
[2023-10-15] MEDS: metoprolol tartrate 12.5mg (1/2 tablet) PO SCH (07:29)
[2023-10-15] MEDS: albumin (Human) 5% 250ml 250 ML IV ONE ×2 (08:00→10:12)
[2023-10-15] MEDS: aspirin 81mg tab.chew PO SCH (08:33)
[2023-10-15] MEDS: albumin (human) 25% 100 ML IV solution IV ONE (10:18)
[2023-10-15] MEDS: ipratropium/albuterol 3ml nebule NEB STA (10:24)
[2023-10-15 10:29] LABS: ABG BASE EXCESS -2.5 mmol/L (-2.0-2.0); ABG HCO3 20.4 mmol/L (22.0-26.0); ABG OXYGEN SATURATION 93.1 % (94-97); ABG PCO2 (T) 29.2 mmHg (35.0-48.0); ABG PH (T) 7.466 (7.340-7.440); ABG PO2 (T) 65.3 mmHg (75.0-100.0); FCOHb 0.5 % (0.0-3.9); FHHb 6.8 % (0.0-5.0); FMetHb 0.3 % (0.0-1.5); FO2Hb 92.4 % (94-97); MODE SPONT; PATIENT TEMPERATURE 37.8; PEEP 5 cm H2O; TOTAL HEMOGLOBIN 8.3 G/dl (14.0-17.9)
[2023-10-15] MEDS: furosemide 20 MG/2 ML vial IV SCH (10:39)
[2023-10-15 12:30] LABS: ABG BASE EXCESS -1.5 mmol/L (-2.0-2.0); ABG HCO3 22.9 mmol/L (22.0-26.0); ABG OXYGEN SATURATION 92.4 % (94-97); ABG PCO2 (T) 37.6 mmHg (35.0-48.0); ABG PH (T) 7.404 (7.340-7.440); ABG PO2 (T) 64.7 mmHg (75.0-100.0); FCOHb 0.5 % (0.0-3.9); FHHb 7.5 % (0.0-5.0); FLOW 2 L/min; FMetHb 0.3 % (0.0-1.5); FO2Hb 91.7 % (94-97); MODE OXYGENATOR; PATIENT TEMPERATURE 37.5; TOTAL HEMOGLOBIN 7.9 G/dl (14.0-17.9)
[2023-10-15] MEDS: gabapentin 300mg capsule PO SCH (20:00)
[2023-10-15] MEDS: acetaminophen 325mg tablet PO PRN (21:15)
[2023-10-16] VITALS (32 sets, daily range): BP systolic 88–145; BP diastolic 27–66; PULSE 86–101; RESP 16–30; TEMP 98.8–99.2; O2SAT 89–96
[2023-10-16 03:16] LABS: BASOPHILS % (AUTO) 0.2 % (0-1); EOSINOPHILS % (AUTO) 0 % (0-6); LYMPHOCYTES # (AUTO) 0.6 X10'3 (1.1-4.8); LYMPHOCYTES % (AUTO) 6.2 % (21-51); MEAN CORPUSCULAR HEMOGLOBIN 30.3 PG (27.0-31.0); MEAN CORPUSCULAR VOLUME 86.8 FL (78-98); MEAN PLATELET VOLUME 9.2 FL (7.4-10.4); MONOCYTES # (AUTO) 0.6 X10'3 (0-0.9); MONOCYTES % (AUTO) 6.6 % (2-12); PLATELET COUNT 106 X10'3 (140-440); RED BLOOD COUNT 2.49 X10'6 (4.70-6.10); RED CELL DISTRIBUTION WIDTH 16.2 % (11.5-14.5); WHITE BLOOD COUNT 9.2 X10'3 (4.5-11.0)
[2023-10-16 03:50] LABS: HEMATOCRIT 21.6 % (42.0-52.0); HEMOGLOBIN 7.6 g/dl (14.0-17.9)
[2023-10-16 03:53] LABS: ALBUMIN 3.3 G/DL (3.4-5.0); ANION GAP 6 (8-16); BLOOD UREA NITROGEN 13 MG/DL (7-18); BUN/CREATININE RATIO 11.5 (10.0-20.0); CALCIUM 7.4 MG/DL (8.5-10.1); CHLORIDE 110 MMOL/L (99-107); CREATININE 1.13 MG/DL (0.60-1.10); GLUCOSE 131 MG/DL (70-104); MAGNESIUM 2.3 MG/DL (1.5-2.4); PHOSPHORUS 3.3 MG/DL (2.3-4.5); POTASSIUM 3.8 MMOL/L (3.5-5.1); SODIUM 144 MMOL/L (135-145); THYROID STIMULATING HORMONE 15.72 ulU/ml (0.34-4.50); TOTAL CARBON DIOXIDE 28.2 MMOL/L (24-32); eCRCL 48 ML/MIN; eGFR 63 ML/MIN
[2023-10-16] MEDS: acetaminophen 325mg tablet PO PRN (05:37)
[2023-10-16] MEDS: pantoprazole 40mg Tablet.DR PO SCH (07:20)
[2023-10-16] MEDS ORDERED: LEVOTHYROXINE SODIUM 100 MCG/5 ML injection IV ONE (08:35)
[2023-10-16] MEDS: furosemide 40mg/4ml inj IV ONE (11:00)
[2023-10-16] MEDS: LEVOTHYROXINE SODIUM 100 MCG/5 ML injection IV ONE (14:33)
[2023-10-16] MEDS ORDERED: INSU100C10 SQ (17:09)
[2023-10-16] MEDS ORDERED: LEVO125T PO (17:09)
[2023-10-16] MEDS: metoprolol tartrate 25mg tablet PO SCH (20:43)
[2023-10-16] MEDS: heparin, porcine 5000 units/ml vial SQ SCH (23:54)
[2023-10-17] VITALS (31 sets, daily range): BP systolic 90–115; BP diastolic 48–65; PULSE 71–93; RESP 16–29; O2SAT 87–99
[2023-10-17 02:31] LABS: BASOPHILS % (AUTO) 0.4 % (0-1); EOSINOPHILS % (AUTO) 0.2 % (0-6); HEMOGLOBIN 9.2 g/dl (14.0-17.9); LYMPHOCYTES # (AUTO) 1.1 X10'3 (1.1-4.8); LYMPHOCYTES % (AUTO) 9.9 % (21-51); MEAN CORPUSCULAR HEMOGLOBIN 30.5 PG (27.0-31.0); MEAN CORPUSCULAR HGB CONC 34.3 g/dL (33.0-36.5); MEAN CORPUSCULAR VOLUME 89.1 FL (78-98); MEAN PLATELET VOLUME 9.4 FL (7.4-10.4); MONOCYTES # (AUTO) 0.7 X10'3 (0-0.9); MONOCYTES % (AUTO) 6.3 % (2-12); NEUTROPHILS # (AUTO) 8.9 X10'3 (1.8-7.7); NEUTROPHILS % (AUTO) 83.2 % (42-75); PLATELET COUNT 88 X10'3 (140-440); RED BLOOD COUNT 3.03 X10'6 (4.70-6.10); RED CELL DISTRIBUTION WIDTH 16.4 % (11.5-14.5); WHITE BLOOD COUNT 10.8 X10'3 (4.5-11.0)
[2023-10-17 02:41] LABS: ALBUMIN 3.1 G/DL (3.4-5.0); ANION GAP 9 (8-16); BLOOD UREA NITROGEN 24 MG/DL (7-18); CALCIUM 7.9 MG/DL (8.5-10.1); CHLORIDE 104 MMOL/L (99-107); CREATININE 1.41 MG/DL (0.60-1.10); GLUCOSE 209 MG/DL (70-104); MAGNESIUM 1.8 MG/DL (1.5-2.4); POTASSIUM 3.8 MMOL/L (3.5-5.1); SODIUM 140 MMOL/L (135-145); TOTAL CARBON DIOXIDE 26.8 MMOL/L (24-32); eCRCL 38 ML/MIN; eGFR 49 ML/MIN
[2023-10-17] MEDS: potassium Cl 40MEQ/270ML bag 250 ML IV PRN (03:14)
[2023-10-17 03:27] LABS: ANISOCYTOSIS 1+; PLATELET ESTIMATE DECREASED; TOTAL CELLS COUNTED 100
[2023-10-17] MEDS: levoTHYROXINE 25mcg tablet PO SCH (08:26)
[2023-10-17] MEDS: albumin (human) 25% 100 ML IV solution IV ONE ×2 (09:15→13:20)
[2023-10-17] MEDS ORDERED: DEXTROSE 15 GM of carb/4 tabs (each vial/BOTTLE has 4 tablets) PO PRN ×2 (13:20)
[2023-10-17] MEDS ORDERED: glucagon, human recombinant 1mg kit SUBCUT PRN (13:20)
[2023-10-17] MEDS ORDERED: dextrose 50%-water 50ml dispensing syringe IV PRN ×2 (13:20)
[2023-10-17] MEDS: insulin Lispro (HumaLOG) vial - multi-dose SQ ONE (14:49)
[2023-10-17] MEDS: insulin Lispro (HumaLOG) vial - multi-dose SQ SCH ×2 (17:00→18:58)
[2023-10-18] VITALS (24 sets, daily range): BP systolic 91–122; BP diastolic 44–66; PULSE 73–88; RESP 16–24; TEMP 97.8–99.1; O2SAT 9–98
[2023-10-18 02:37] LABS: BASOPHILS % (AUTO) 0.3 % (0-1); EOSINOPHILS # (AUTO) 0.1 X10'3 (0-0.9); EOSINOPHILS % (AUTO) 1.1 % (0-6); HEMATOCRIT 25.5 % (42.0-52.0); HEMOGLOBIN 8.7 g/dl (14.0-17.9); LYMPHOCYTES # (AUTO) 1.1 X10'3 (1.1-4.8); LYMPHOCYTES % (AUTO) 11.2 % (21-51); MEAN CORPUSCULAR HEMOGLOBIN 30.7 PG (27.0-31.0); MEAN CORPUSCULAR HGB CONC 34.1 g/dL (33.0-36.5); MEAN CORPUSCULAR VOLUME 89.9 FL (78-98); MEAN PLATELET VOLUME 9.5 FL (7.4-10.4); MONOCYTES # (AUTO) 0.8 X10'3 (0-0.9); MONOCYTES % (AUTO) 8.4 % (2-12); NEUTROPHILS # (AUTO) 7.6 X10'3 (1.8-7.7); PLATELET COUNT 95 X10'3 (140-440); RED BLOOD COUNT 2.83 X10'6 (4.70-6.10); RED CELL DISTRIBUTION WIDTH 15.8 % (11.5-14.5); WHITE BLOOD COUNT 9.6 X10'3 (4.5-11.0)
[2023-10-18 02:50] LABS: ANION GAP 9 (8-16); BLOOD UREA NITROGEN 29 MG/DL (7-18); BUN/CREATININE RATIO 25.9 (10.0-20.0); CHLORIDE 102 MMOL/L (99-107); CREATININE 1.12 MG/DL (0.60-1.10); GLUCOSE 121 MG/DL (70-104); POTASSIUM 4.1 MMOL/L (3.5-5.1); SODIUM 138 MMOL/L (135-145); TOTAL CARBON DIOXIDE 27.3 MMOL/L (24-32); eCRCL 48 ML/MIN; eGFR 64 ML/MIN
[2023-10-18 02:51] LABS: ALBUMIN 3.4 G/DL (3.4-5.0); MAGNESIUM 2.3 MG/DL (1.5-2.4); PHOSPHORUS 3.1 MG/DL (2.3-4.5)
[2023-10-18] MEDS: potassium Cl 20 mEq SR tablet PO PRN (03:05)
[2023-10-18] MEDS: magnesium 2GM in 50ml NS 50 ML IV PRN (03:05)
[2023-10-18] MEDS ORDERED: potassium Cl 20 mEq SR tablet PO PRN ×2 (09:10)
[2023-10-18] MEDS ORDERED: magnesium 2GM in 50ml NS 50 ML IV PRN (09:10)
[2023-10-18] MEDS ORDERED: magnesium 4gm in 100ml NS 100 ML IV PRN (09:10)
[2023-10-18] MEDS ORDERED: potassium Cl 40MEQ/270ML bag 250 ML IV PRN (09:10)
[2023-10-18] MEDS ORDERED: potassium Cl 40MEQ/1/2NS 520ml 520 ML IV PRN (09:10)
[2023-10-18] MEDS ORDERED: potassium Cl 20mEq/100mL bag 100 ML IV PRN (09:10)
[2023-10-18] MEDS ORDERED: potassium CL 10mEq/100ml bag 100 ML IV PRN (09:10)
[2023-10-18] MEDS: magnesium Cl slow-release 64mg tablet PO SCH (20:50)
[2023-10-19] VITALS (14 sets, daily range): BP systolic 94–123; BP diastolic 54–74; PULSE 68–83; RESP 14–22; TEMP 97.1–98.1; O2SAT 94–99
[2023-10-19] MEDS: magnesium hydroxide 30ml (MOM) UD suspension PO PRN (02:29)
[2023-10-19] MEDS: bisacodyl 10mg suppository rectal RC PRN (08:00)
[2023-10-19 09:16] LABS: ABG PO2 42.4 mmHg (75.0-100.0)
[2023-10-19 09:17] LABS: K (ABG) 2.5 mmol/L (3.5-5.1)
[2023-10-19 09:17] LABS: ABG PO2 49.7 mmHg (75.0-100.0)
[2023-10-20] VITALS (12 sets, daily range): BP systolic 93–120; BP diastolic 53–73; PULSE 55–79; RESP 15–28; TEMP 97.7–98.1; O2SAT 93–99
[2023-10-20] MEDS: furosemide 40mg tablet PO ONE (08:59)
[2023-10-20 09:10] LABS: BASOPHILS % (AUTO) 0.3 % (0-1); EOSINOPHILS # (AUTO) 0.2 X10'3 (0-0.9); EOSINOPHILS % (AUTO) 2.1 % (0-6); HEMATOCRIT 27.7 % (42.0-52.0); HEMOGLOBIN 9.5 g/dl (14.0-17.9); LYMPHOCYTES # (AUTO) 0.9 X10'3 (1.1-4.8); LYMPHOCYTES % (AUTO) 8.9 % (21-51); MEAN CORPUSCULAR HGB CONC 34.3 g/dL (33.0-36.5); MEAN CORPUSCULAR VOLUME 90.4 FL (78-98); MEAN PLATELET VOLUME 9.6 FL (7.4-10.4); MONOCYTES # (AUTO) 0.9 X10'3 (0-0.9); MONOCYTES % (AUTO) 9.8 % (2-12); NEUTROPHILS # (AUTO) 7.6 X10'3 (1.8-7.7); NEUTROPHILS % (AUTO) 78.9 % (42-75); PLATELET COUNT 154 X10'3 (140-440); RED BLOOD COUNT 3.07 X10'6 (4.70-6.10); RED CELL DISTRIBUTION WIDTH 15.6 % (11.5-14.5); WHITE BLOOD COUNT 9.6 X10'3 (4.5-11.0)
[2023-10-20 09:15] LABS: ANION GAP 11 (8-16); BLOOD UREA NITROGEN 23 MG/DL (7-18); BUN/CREATININE RATIO 23.2 (10.0-20.0); CALCIUM 7.9 MG/DL (8.5-10.1); CHLORIDE 101 MMOL/L (99-107); CREATININE 0.99 MG/DL (0.60-1.10); GLUCOSE 136 MG/DL (70-104); POTASSIUM 4.1 MMOL/L (3.5-5.1); SODIUM 135 MMOL/L (135-145); TOTAL CARBON DIOXIDE 22.6 MMOL/L (24-32); eCRCL 54 ML/MIN; eGFR 73 ML/MIN
[2023-10-20 09:35] LABS: PLATELET ESTIMATE NORMAL
[2023-10-20 09:36] LABS: ANISOCYTOSIS FEW; MICROCYTOSIS FEW; POIKILOCYTOSIS FEW; POLYCHROMASIA FEW
[2023-10-21] VITALS (10 sets, daily range): BP systolic 94–123; BP diastolic 45–67; PULSE 71–79; RESP 15–62; TEMP 98.1–98.3; O2SAT 91–99
[2023-10-21] MEDS: levoTHYROXINE 100mcg tablet PO SCH (07:29)
[2023-10-21 07:51] LABS: BASOPHILS % (AUTO) 0.4 % (0-1); EOSINOPHILS # (AUTO) 0.1 X10'3 (0-0.9); EOSINOPHILS % (AUTO) 1.3 % (0-6); HEMATOCRIT 27.9 % (42.0-52.0); HEMOGLOBIN 9.7 g/dl (14.0-17.9); LYMPHOCYTES # (AUTO) 1.1 X10'3 (1.1-4.8); LYMPHOCYTES % (AUTO) 11.1 % (21-51); MEAN CORPUSCULAR HEMOGLOBIN 31.2 PG (27.0-31.0); MEAN CORPUSCULAR HGB CONC 34.9 g/dL (33.0-36.5); MEAN CORPUSCULAR VOLUME 89.5 FL (78-98); MEAN PLATELET VOLUME 8.1 FL (7.4-10.4); MONOCYTES % (AUTO) 10.4 % (2-12); NEUTROPHILS # (AUTO) 7.3 X10'3 (1.8-7.7); NEUTROPHILS % (AUTO) 76.8 % (42-75); PLATELET COUNT 211 X10'3 (140-440); RED BLOOD COUNT 3.12 X10'6 (4.70-6.10); RED CELL DISTRIBUTION WIDTH 15.3 % (11.5-14.5); WHITE BLOOD COUNT 9.5 X10'3 (4.5-11.0)
[2023-10-21 07:59] LABS: ALBUMIN 2.8 G/DL (3.4-5.0); ANION GAP 8 (8-16); BLOOD UREA NITROGEN 24 MG/DL (7-18); BUN/CREATININE RATIO 24.5 (10.0-20.0); CALCIUM 7.8 MG/DL (8.5-10.1); CHLORIDE 101 MMOL/L (99-107); CREATININE 0.98 MG/DL (0.60-1.10); GLUCOSE 143 MG/DL (70-104); MAGNESIUM 1.8 MG/DL (1.5-2.4); POTASSIUM 3.7 MMOL/L (3.5-5.1); SODIUM 135 MMOL/L (135-145); TOTAL CARBON DIOXIDE 26.5 MMOL/L (24-32); eCRCL 55 ML/MIN; eGFR 74 ML/MIN
[2023-10-21] MEDS: lactose-reduced food (Ensure Enlive) - 237ml bottle PO SCH (13:00)
== END 2023-10-21 16:46 | DRG 216 ==
LOC: ER 19:20 → ED HOLD 10-12 03:11 → PCU 3S 10-12 05:10 → CICU 2S 10-14 15:38 → PCU 3S 10-18 10:55
PROVIDERS: ADMIT Internal Medicine Critical Care Medicine; ATTEND Family Medicine
PROC: 4A023N8 Measurement of Cardiac Sampling and Pressure, Bilateral, Percutaneous Approach (ICD-10-PCS; principal; 2023-10-12)
PROC: B2111ZZ Fluoroscopy of Multiple Coronary Arteries using Low Osmolar Contrast (ICD-10-PCS; 2023-10-12)
PROC: B2151ZZ Fluoroscopy of Left Heart using Low Osmolar Contrast (ICD-10-PCS; 2023-10-12)
PROC: 02RF08Z Replacement of Aortic Valve with Zooplastic Tissue, Open Approach (ICD-10-PCS; 2023-10-14)
PROC: 021209W Bypass Coronary Artery, Three Arteries from Aorta with Autologous Venous Tissue, Open Approach (ICD-10-PCS; 2023-10-14)
PROC: 06BP4ZZ Excision of Right Saphenous Vein, Percutaneous Endoscopic Approach (ICD-10-PCS; 2023-10-14)
PROC: 02100Z9 Bypass Coronary Artery, One Artery from Left Internal Mammary, Open Approach (ICD-10-PCS; 2023-10-14)
PROC: 5A1221Z Performance of Cardiac Output, Continuous (ICD-10-PCS; 2023-10-14)
PROC: B24BZZ4 Ultrasonography of Heart with Aorta, Transesophageal (ICD-10-PCS; 2023-10-14)
PROC: 30233K1 Transfusion of Nonautologous Frozen Plasma into Peripheral Vein, Percutaneous Approach (ICD-10-PCS; 2023-10-14)
PROC: 30233N1 Transfusion of Nonautologous Red Blood Cells into Peripheral Vein, Percutaneous Approach (ICD-10-PCS; 2023-10-14)
PROC: 30233M1 Transfusion of Nonautologous Plasma Cryoprecipitate into Peripheral Vein, Percutaneous Approach (ICD-10-PCS; 2023-10-14)
PROC: 30233R1 Transfusion of Nonautologous Platelets into Peripheral Vein, Percutaneous Approach (ICD-10-PCS; 2023-10-14)
PROC: 04HY32Z Insertion of Monitoring Device into Lower Artery, Percutaneous Approach (ICD-10-PCS; 2023-10-14)
DX: I35.0 Nonrheumatic aortic (valve) stenosis (principal); G93.41 Metabolic encephalopathy; I21.4 Non-ST elevation (NSTEMI) myocardial infarction; I50.43 Acute on chronic combined systolic (congestive) and diastolic (congestive) heart failure; N39.0 Urinary tract infection, site not specified; I69.354 Hemiplegia and hemiparesis following cerebral infarction affecting left non-dominant side; J98.11 Atelectasis; D62 Acute posthemorrhagic anemia; F32.A Depression, unspecified; I25.10 Atherosclerotic heart disease of native coronary artery without angina pectoris; F17.200 Nicotine dependence, unspecified, uncomplicated; E03.9 Hypothyroidism, unspecified; J44.9 Chronic obstructive pulmonary disease, unspecified; E78.5 Hyperlipidemia, unspecified; E11.42 Type 2 diabetes mellitus with diabetic polyneuropathy; I11.0 Hypertensive heart disease with heart failure; D69.6 Thrombocytopenia, unspecified; Z87.440 Personal history of urinary (tract) infections; Z90.49 Acquired absence of other specified parts of digestive tract; Z79.4 Long term (current) use of insulin; Z83.3 Family history of diabetes mellitus
CPT/HCPCS: 0232T; 93306; 93312; 93325; 93461; 96365; 96367; 96376; 99291; 36415; 36430; 36600; 71045; 71250; 76376; 76937; 80048; 80053; 80061; 81001; 82140; 82330; 82435; 82803; 82810; 82947; 82948; 83036; 83605; 83735; 83880; 84100; 84132; 84295; 84439; 84443; 84484; 85007; 85008; 85014; 85018; 85025; 85347; 85384; 85610; 85730; 86885; 86900; 86901; 86920; 87070; 87081; 87088; 93005; 93880; 93970; 94002; 94003; 94010; 94640; 94664; 94668; 94760; 97110; 97116; 97162; 97530; 97535; 99152; 99153; A4333; A4349; A4565; A4615; A4618; A6213; A6250; A6258; A6402; A6449; A6590; A7000; A7015; C1725; C1751; C1757; C1769; C1894; C9113; C9290; G0378; J0131; J0171; J0610; J0690; J0696; J1170; J1265; J1644; J1815; J1940; J2060; J2150; J2250; J2704; J2720; J2930; J3010; J3370; J3475; J3480; J3490; J7030; J7040; J7050; J7060; J7120; P9012; P9016; P9035; P9045; P9047; P9059; Q9967

== ENCOUNTER 2024-07-20 18:53 | Inpatient (IN) | payer MEDICARE ==
[~2024-07-20] VITALS: Ht 172.7 cm; Wt 67.0 kg
[~2024-07-20 18:53] MED LIST: INSU100C10 SQ; LEVO125T PO
[2024-07-20 21:44] LABS: BASOPHILS % (AUTO) 0.3 % (0-1); EOSINOPHILS % (AUTO) 0.3 % (0-6); HEMATOCRIT 43.4 % (42.0-52.0); LYMPHOCYTES # (AUTO) 0.9 X10'3 (1.1-4.8); LYMPHOCYTES % (AUTO) 8.5 % (21-51); MEAN CORPUSCULAR HEMOGLOBIN 31.9 PG (27.0-31.0); MEAN CORPUSCULAR HGB CONC 34.5 g/dL (33.0-36.5); MEAN CORPUSCULAR VOLUME 92.5 FL (78-98); MONOCYTES # (AUTO) 0.6 X10'3 (0-0.9); MONOCYTES % (AUTO) 6.2 % (2-12); NEUTROPHILS # (AUTO) 8.6 X10'3 (1.8-7.7); NEUTROPHILS % (AUTO) 84.7 % (42-75); PLATELET COUNT 260 X10'3 (140-440); RED BLOOD COUNT 4.69 X10'6 (4.70-6.10); WHITE BLOOD COUNT 10.2 X10'3 (4.5-11.0)
[2024-07-20] MEDS: normal saline 1000ml 1,000 ML IV ONE (21:46)
[2024-07-20 22:04] LABS: ALBUMIN 3.4 G/DL (3.4-5.0); ANION GAP 9 (8-16); BLOOD UREA NITROGEN 26 MG/DL (7-18); BUN/CREATININE RATIO 23.4 (10.0-20.0); CALCIUM 8.2 MG/DL (8.5-10.1); CHLORIDE 105 MMOL/L (99-107); CREATININE 1.11 MG/DL (0.60-1.10); GLUCOSE 127 MG/DL (70-104); MAGNESIUM 2.3 MG/DL (1.5-2.4); POTASSIUM 3.8 MMOL/L (3.5-5.1); PRO BRAIN NATRIURETIC PEPTIDE 290 PG/ML (0-450); SODIUM 139 MMOL/L (135-145); TOTAL CARBON DIOXIDE 25.3 MMOL/L (24-32); eCRCL 52 ML/MIN; eGFR 64 ML/MIN
[2024-07-20 23:16] LABS: BILIRUBIN,URINE NEGATIVE (Neg); CLARITY,URINE CLEAR (Clear); COLOR,URINE YELLOW (Yellow); GLUCOSE, URINE NEGATIVE (Neg); KETONES,URINE 15 mg/dl (Neg); LEUKOCYTE ESTERASE ,URINE NEGATIVE (Neg); NITRITES, URINE NEGATIVE (Neg); OCCULT BLOOD,URINE NEGATIVE (Neg); PROTEIN,URINE 30 mg/dl (Neg)
[2024-07-20 23:20] LABS: UA COLLECTION TYPE CLN CATCH MIDSTREAM
[2024-07-20 23:24] LABS: BACTERIA,URINE FEW /HPF (Neg); MUCUS STRANDS MODERATE /LPF (Neg); RBC,URINE NONE SEEN /HPF (0-2); SQUAMOUS EPITHELIAL CELL,UR FEW /LPF (FEW); WBC,URINE 0-4 /HPF (0-4)
[2024-07-21] VITALS (7 sets, daily range): BP systolic 80–111; BP diastolic 50–65; PULSE 62–82; RESP 13–20; TEMP 97.2–98.2; O2SAT 97–99
[2024-07-21] MEDS ORDERED: potassium Cl 20 mEq SR tablet PO PRN ×2 (00:20)
[2024-07-21] MEDS ORDERED: potassium Cl 40MEQ/1/2NS 520ml 520 ML IV PRN (00:20)
[2024-07-21] MEDS ORDERED: acetaminophen 325mg tablet PO PRN (00:20)
[2024-07-21] MEDS ORDERED: magnesium sulf-water 2g/50mL 50 ML IV PRN (00:20)
[2024-07-21] MEDS ORDERED: magnesium Cl slow-release 64mg tablet PO PRN (00:20)
[2024-07-21] MEDS ORDERED: ondansetron/PF 4mg/2ml inj IV PRN (00:20)
[2024-07-21] MEDS ORDERED: magnesium sulf-water 4G/100mL 100 ML IV PRN (00:20)
[2024-07-21] MEDS ORDERED: albuterol 2.5 MG/3 ML nebule NEB PRN (00:25)
[2024-07-21 01:14] LABS: HEMOGLOBIN A1C 7.5 % (4.5-6.2)
[2024-07-21] MEDS ORDERED: DEXTROSE 15 GM of carb/4 tabs (each vial/BOTTLE has 4 tablets) PO PRN ×2 (01:25)
[2024-07-21] MEDS ORDERED: glucagon, human recombinant 1mg kit SUBCUT PRN (01:25)
[2024-07-21] MEDS ORDERED: dextrose 50%-water 50ml dispensing syringe IV PRN ×2 (01:25)
[2024-07-21] MEDS: PERFLUTREN PROTEIN-A MICROSPHR (Optison) 0.22 MG/ML 3ML VIAL IV ONE (01:41)
[2024-07-21] MEDS: atorvastatin 20mg tablet PO SCH (07:50)
[2024-07-21] MEDS: aspirin 81mg tab.chew PO SCH (07:50)
[2024-07-21] MEDS: levoTHYROXINE 100mcg tablet PO SCH (07:50)
[2024-07-21] MEDS: pantoprazole 40mg Tablet.DR PO SCH (07:51)
[2024-07-21] MEDS: metoprolol tartrate 50mg tablet PO SCH (07:51)
[2024-07-21] MEDS: K and/or MAG REPLACEMENT MC SCH (07:51)
[2024-07-21] MEDS: docusate sod 100mg capsule PO SCH (07:52)
[2024-07-21] MEDS: enoxaparin 40mg/0.4ml syringe SUBCUT SCH (07:58)
[2024-07-21] MEDS: INSULIN LISPRO 100 UNIT/ML INSULN.PEN MULTI-DOSE SQ SCH (10:19)
[2024-07-21] MEDS: normal saline 1000ml 1,000 ML IV SCH (11:41)
[2024-07-21] MEDS: insulin glargine (Lantus) pen - multi-dose SQ SCH (20:28)
[2024-07-21] MEDS: metoprolol tartrate 25mg tablet PO ONE (20:30)
[2024-07-22] VITALS (8 sets, daily range): BP systolic 102–139; BP diastolic 65–74; PULSE 65–80; RESP 12–17; TEMP 97.8–98.7; O2SAT 96–100
[2024-07-22] MEDS: normal saline 500ml IV soln 500 ML IV ONE (05:47)
[2024-07-22 06:51] LABS: BASOPHILS % (AUTO) 0.9 % (0-1); EOSINOPHILS # (AUTO) 0.1 X10'3 (0-0.9); EOSINOPHILS % (AUTO) 2.2 % (0-6); HEMATOCRIT 33.5 % (42.0-52.0); HEMOGLOBIN 11.5 g/dl (14.0-17.9); LYMPHOCYTES # (AUTO) 1.6 X10'3 (1.1-4.8); LYMPHOCYTES % (AUTO) 28.6 % (21-51); MEAN CORPUSCULAR HGB CONC 34.4 g/dL (33.0-36.5); MEAN CORPUSCULAR VOLUME 92.9 FL (78-98); MEAN PLATELET VOLUME 8.8 FL (7.4-10.4); MONOCYTES # (AUTO) 0.5 X10'3 (0-0.9); MONOCYTES % (AUTO) 8.3 % (2-12); NEUTROPHILS # (AUTO) 3.4 X10'3 (1.8-7.7); PLATELET COUNT 163 X10'3 (140-440); RED BLOOD COUNT 3.61 X10'6 (4.70-6.10); WHITE BLOOD COUNT 5.6 X10'3 (4.5-11.0)
[2024-07-22 07:05] LABS: ALBUMIN 2.8 G/DL (3.4-5.0); ANION GAP 8 (8-16); BLOOD UREA NITROGEN 32 MG/DL (7-18); BUN/CREATININE RATIO 30.5 (10.0-20.0); CALCIUM 7.9 MG/DL (8.5-10.1); CHLORIDE 110 MMOL/L (99-107); CREATININE 1.05 MG/DL (0.60-1.10); GLUCOSE 82 MG/DL (70-104); MAGNESIUM 1.8 MG/DL (1.5-2.4); POTASSIUM 3.6 MMOL/L (3.5-5.1); SODIUM 142 MMOL/L (135-145); TOTAL CARBON DIOXIDE 23.6 MMOL/L (24-32); eCRCL 55 ML/MIN; eGFR 68 ML/MIN
[2024-07-22 07:18] LABS: THYROID STIMULATING HORMONE 92.31 ulU/ml (0.34-4.50)
[2024-07-22] MEDS: metoprolol tartrate 25mg tablet PO SCH (08:00)
[2024-07-23 05:35] VITALS: BP_SYST 118; BP_SYST 121; BP_SYST 141; BP_DIAS 52; BP_DIAS 67; BP_DIAS 78; PULSE 60; PULSE 66; PULSE 67
[2024-07-23 06:00] VITALS: BP 141/75; PULSE 68; RESP 17; TEMP 97.6; O2SAT 97
[2024-07-23 06:28] LABS: BASOPHILS % (AUTO) 0.7 % (0-1); EOSINOPHILS # (AUTO) 0.1 X10'3 (0-0.9); EOSINOPHILS % (AUTO) 1.9 % (0-6); HEMATOCRIT 39.7 % (42.0-52.0); HEMOGLOBIN 13.4 g/dl (14.0-17.9); LYMPHOCYTES # (AUTO) 1.1 X10'3 (1.1-4.8); LYMPHOCYTES % (AUTO) 18.8 % (21-51); MEAN CORPUSCULAR HEMOGLOBIN 31.7 PG (27.0-31.0); MEAN CORPUSCULAR HGB CONC 33.7 g/dL (33.0-36.5); MEAN CORPUSCULAR VOLUME 93.9 FL (78-98); MEAN PLATELET VOLUME 7.7 FL (7.4-10.4); MONOCYTES # (AUTO) 0.4 X10'3 (0-0.9); MONOCYTES % (AUTO) 7.5 % (2-12); NEUTROPHILS # (AUTO) 4.2 X10'3 (1.8-7.7); NEUTROPHILS % (AUTO) 71.1 % (42-75); PLATELET COUNT 234 X10'3 (140-440); RED BLOOD COUNT 4.22 X10'6 (4.70-6.10); RED CELL DISTRIBUTION WIDTH 15.1 % (11.5-14.5); WHITE BLOOD COUNT 5.9 X10'3 (4.5-11.0)
[2024-07-23 07:02] LABS: ANION GAP 8 (8-16); BLOOD UREA NITROGEN 19 MG/DL (7-18); BUN/CREATININE RATIO 20.4 (10.0-20.0); CALCIUM 8.2 MG/DL (8.5-10.1); CHLORIDE 107 MMOL/L (99-107); CREATININE 0.93 MG/DL (0.60-1.10); GLUCOSE 158 MG/DL (70-104); MAGNESIUM 1.8 MG/DL (1.5-2.4); POTASSIUM 3.9 MMOL/L (3.5-5.1); SODIUM 140 MMOL/L (135-145); eCRCL 62 ML/MIN; eGFR 79 ML/MIN
[2024-07-23 07:04] LABS: THYROID STIMULATING HORMONE 91.91 ulU/ml (0.34-4.50)
[2024-07-23 08:00] VITALS: BP_SYST 105; BP_SYST 111; BP_SYST 130; BP_DIAS 61; BP_DIAS 62; BP_DIAS 76; PULSE 65; PULSE 67
[2024-07-23] MEDS: normal saline 500ml IV soln 500 ML IV ONE (08:00)
[2024-07-23] MEDS ORDERED: LOP25T PO (09:17)
[2024-07-23] MEDS ORDERED: ASPI81TA53 PO (09:17)
[2024-07-23] MEDS ORDERED: ATOR20TA66 PO (09:17)
[2024-07-23] MEDS ORDERED: PANT40TA54 PO (09:17)
[2024-07-23 10:00] VITALS: BP 145/79; PULSE 68; RESP 16; TEMP 97.9; O2SAT 97
[2024-07-23 12:09] LABS: THIIODOTHRONINE, FREE, SERUM 1.2 pg/mL (2.0-4.4); THYROXINE (T4) 2.6 ug/dL (4.5-12.0)
[2024-07-23 15:26] VITALS: BP_SYST 105; BP_SYST 111; BP_SYST 130; BP_DIAS 61; BP_DIAS 62; BP_DIAS 76; PULSE 65; PULSE 67
== END 2024-07-23 18:50 | disposition home or self-care (01) | DRG 312 ==
LOC: ER 18:53 → ED HOLD 07-21 00:20 → ORTHO 4S 07-21 15:00
PROVIDERS: ADMIT Internal Medicine Critical Care Medicine; ATTEND Internal Medicine
DX: I95.1 Orthostatic hypotension (principal); I69.351 Hemiplegia and hemiparesis following cerebral infarction affecting right dominant side; E11.42 Type 2 diabetes mellitus with diabetic polyneuropathy; E03.9 Hypothyroidism, unspecified; F32.A Depression, unspecified
CPT/HCPCS: 36415; 70450; 71045; 80048; 81001; 82948; 83036; 83735; 83880; 84436; 84443; 84481; 84484; 85025; 87081; 93005; 93306; 93880; 94760; 97116; 97161; 97530; 99285; A6590; G0378; J1650; J1815; J7030; J7040

== ENCOUNTER 2025-02-10 01:58 | Emergency (ER) | payer MEDICARE ==
[~2025-02-10] VITALS: Ht 165.1 cm; Wt 41.0 kg
[~2025-02-10 01:58] MED LIST changes: +ASPI81TA53 PO; +ATOR20TA66 PO; +LOP25T PO; +PANT40TA54 PO
--- NOTE | 2025-02-10 02:30 | Physician Documentation ---
History of Present Illness ~ Chief Complaint: Edema Stated Complaint: FOOT SWELLING A BLS Time Seen by MD: 02:27 Primary Medical Doctor: DR. JACQUES HPI Patient presents to the emergency room sent from [facility] for evaluation of swelling to his left foot. Unknown time of onset. Patient is nonverbal. No fevers. Medication Reconciliation Allergies: Coded Allergies: glyburide (Verified Allergy, Unknown, HIVES, 11/09/24) Scheduled Aspirin (Children's Aspirin), 81 MG PO DAILY@0830 Atorvastatin Calcium (Atorvastatin Calcium), 20 MG PO DAILY Insulin Lispro (Humalog), 0 SQ AC, (Reported) Levothyroxine Sodium (Synthroid), 1 TAB PO DAILY, (Reported) Metoprolol Tartrate* (Lopressor tablet*), 25 MG PO BID Pantoprazole Sodium (Pantoprazole Sodium), 40 MG PO BKF Past Medical History Past Medical History: *RENAL/*, UTI, Diabetes, Depression Past Surgical History: noncontributory, cholecystectomy Patient History: Patient reports no known family medical history. Alcohol Use: None Drug Use: none Lives with: Family Lives In: Home Occupation: retired Review of Systems ROS Unable to obtain review of systems secondary to patient's clinical condition Physical Exam Vital Signs: Heart Rate: 82, Respiratory Rate: 16, BP: 142/87, Pulse Oximetry: 99, Weight: 41.000 General Appearance General: Patient is awake, alert, in no acute distress Head: Normocephalic and atraumatic. Eyes: Conjunctival normal. EOMI. PERRL. ENT: Mucous membranes moist. Neck: Supple, trachea is midline. Chest: Clear to auscultation bilaterally without rales, rhonchi, or wheezes. There is no accessory muscle use or retractions. Cardiac: RRR without murmurs, gallops, or rubs. Abd: Soft, nondistended, nontender, with normoactive bowel sounds. No guarding, rebound, or rigidity. Extremities: Right foot normal, left foot with mild edema noted to diffuse dorsum of foot without erythema. Patient appears uncomfortable when manipulating his foot. Possible old surgical scar noted on dorsum of left foot between digits two and three Progress Results/Orders Results/Orders Orders - CHANCE RUSH MD, Complete (3vw Min) (02/10/25 02:41) Completed Orders - CHANCE RUSH MD Foot, Complete (3vw Min) (02/10/25 02:41) Vital Signs 02/10/25 02:04 Pulse 82 Resp 16 B/P (MAP) 142/87 Pulse Ox 99 EKG/XRAY/CT/US/VASC/MRI Bone/Soft Tissue X-Ray (Ext.) : Additional Comment Foot x-ray series is negative for fractures dislocations or foreign bodies interpreted by myself Medical Decision Making Findings Patient presents to the emergency room with swelling of his left foot as per HPI. Unknown time of onset. Differentials include but are not limited to fractures, gout, DVT, abscess. Patient's foot does not appear infected and that has no area of fluctuance however that has some swelling to the dorsum of his left foot therefore x-ray performed which was reassuring for no fractures. I have very low suspicion for deep tissue abscess and he had not feel he requires CT scan. As the swelling is to dorsum of foot with no appreciable swelling to calf I do not feel patient requires investigation into DVT. Unknown cause for patient's foot swelling although there does appear to be an old scar near the area of swelling and this may be related to postsurgical edema from structure of lymph system but without a history is indeterminate. I do not feel he is suffering from medical emergency. Departure Disposition: 03 [facility] FACILITY Impression: Primary Impression: Swelling of left foot Condition: Stable Discharge Instructions: Edema Additional Instructions: Unknown cause for patient's swelling of foot. X-ray is reassuring. I do not suspect infectious process or DVT Referrals: NO PRIMARY CARE PROVIDER (PCP) Signature Scribe Signature: No scribe Attestation: The note accurately reflects work and decisions made by me.Chance Rush MD 02/10/25 02:35 CHANCE RUSH MD Feb 10, 2025 02:30
[2025-02-10 03:01] VITALS: BP 128/64; PULSE 78; RESP 16; O2SAT 99
--- NOTE | 2025-02-10 04:07 | RADIOLOGY REPORT ---
EXAM: DI FOOT, COMPLETE (3VW MIN) HISTORY: Edema LEFT FOOT COMPARISON: None TECHNIQUE: DI FOOT, COMPLETE (3VW MIN) FINDINGS: No acute fracture or dislocation is seen. The soft tissues are unremarkable. IMPRESSION: 1. No acute osseous abnormality of the left foot.
== END 2025-02-10 03:47 ==
LOC: ER 01:59
DX: M79.89 Other specified soft tissue disorders (principal); E11.9 Type 2 diabetes mellitus without complications; F32.A Depression, unspecified; Z90.49 Acquired absence of other specified parts of digestive tract
CPT/HCPCS: 73630; 99284